=== PATIENT | female | born 1965 | race Caucasian/White ===

== ENCOUNTER → 2017-01-25 | Outpatient (CLI) | payer OTHER ==
[~2017-01-25] MED LIST: BRINTELLIX5 MG PO; HYDRALAZINE HCL25 MG PO; HYDROCHLOROTHIA25 MG PO; PRILOSEC OTC20 MG PO; SINGULAIR10 MG PO; SYNTHROID100 MCG PO
== END ==
LOC: HEART 5 09:04
DX: J44.9 Chronic obstructive pulmonary disease, unspecified (principal)
CPT/HCPCS: 94010

== ENCOUNTER → 2022-01-26 | Outpatient (CLI) | payer MEDICARE, OTHER ==
[~2022-01-26] VITALS: Ht 165.1 cm; Wt 74.8 kg
[~2022-01-26] MED LIST changes: +CYANOCOBAL1000 MCG/1 INJ; +GABAPENTIN300 MG PO; +KLONOPIN TAB 00.5 MG PO; +MONTELUKAST SOD10 MG PO; +NAPROSYN500 MG PO; +OMEPRAZOLE40 MG PO; +PRINIVIL20 MG PO; +SYNTHROID125 MCG PO; +TRAZODONE HCL100 MG PO; +TRICOR145 MG PO; +VITAMIN D250000 UNIT PO; +ZANTAC150 MG PO
== END ==
LOC: OPSV 09:00
DX: E05.00 Thyrotoxicosis with diffuse goiter without thyrotoxic crisis or storm (principal)
CPT/HCPCS: 96365; 96366; J3241

== ENCOUNTER → 2022-02-16 | Outpatient (CLI) | payer MEDICARE, OTHER ==
[~2022-02-16] VITALS: Ht 165.1 cm; Wt 74.8 kg
== END ==
LOC: OPSV 09:00
DX: E05.00 Thyrotoxicosis with diffuse goiter without thyrotoxic crisis or storm (principal)
CPT/HCPCS: 96365; 96366; J3241

== ENCOUNTER → 2022-05-08 | Outpatient (CLI) | payer MEDICARE, OTHER | LOC: KOH-I 13:15 | DX: J20.9 Acute bronchitis, unspecified (principal); R06.02 Shortness of breath | CPT/HCPCS: 71046 ==